=== PATIENT | female | born 1925 | race Two or more races ===

== ENCOUNTER 2017-05-19 15:27 | Outpatient (CLI) | payer OTHER ==
[~2017-05-19 15:27] MED LIST: AMLODIPINE BESYL5 MG; ASA81 MG; BALANCED B; BENAZEPRIL HCL40 MG; CALCIO DEL MAR500 MG; CARDURA XL4 MG/BOTTL; CARDURA1 MG; FOLIC + B12 TAB1 TAB; METFORMIN HCL500 MG; NAMENDA10 MG; SERTRALINE HCL50 MG; SIMVASTATIN40 MG; TRIDERM30 GM; XARELTO10 MG PO; [UNRECOGNIZED DRUG - OTHER]
== END 2017-05-19 15:36 | disposition home or self-care (01) ==
LOC: RAD 501 15:27
DX: M17.0 Bilateral primary osteoarthritis of knee (principal)